=== PATIENT | female | born 1985 | race Two or more races ===

== ENCOUNTER → 2022-01-14 | Day surgery (SDC) | payer OTHER ==
[~2022-01-14] VITALS: Ht 157.5 cm; Wt 51.7 kg
[~2022-01-14] MED LIST: D3 + K2 DOTS 11 EACH PO; IRON325 MG PO; SYNTHROID50 MCG PO; TAMOXIFEN CITRA20 MG PO
== END | disposition home or self-care (01) ==
LOC: ADM 01-07 11:00 → CIR.AMB 07:00
PROVIDERS: ATTEND Colon & Rectal Surgery
DX: K64.2 Third degree hemorrhoids (principal); Z20.822 Contact with and (suspected) exposure to COVID-19; K21.9 Gastro-esophageal reflux disease without esophagitis; Z85.3 Personal history of malignant neoplasm of breast

== ENCOUNTER 2024-03-31 09:15 | Inpatient (IN) | payer OTHER ==
[~2024-03-31] VITALS: Ht 157.5 cm; Wt 56.2 kg
[2024-04-06] MEDS ORDERED: CEFOXITIN SODIUM 2,000 MG VIAL IV ONE (17:43)
[2024-04-06] MEDS ORDERED: ONDANSETRON HCL 2 MG/ML VIAL IV PRN (19:45)
[2024-04-06] MEDS ORDERED: MORPHINE SULFATE 4 MG/ML CARTRIDGE IV PRN (19:45)
[2024-04-06] MEDS ORDERED: RINGERS SOLUTION,LACTATED 1,000 ML IV SCH (19:45)
[2024-04-06] MEDS ORDERED: CEFOXITIN SODIUM 2,000 MG VIAL IV SCH (19:45)
[2024-04-06] MEDS ORDERED: DOCUSATE SODIUM 100MG CAP PO SCH (21:00)
[2024-04-06] MEDS ORDERED: FAMOTIDINE/PF 20 MG/2 ML VIAL IV SCH (21:00)
[2024-04-06] MEDS ORDERED: ONDANSETRON HCL 2 MG/ML VIAL ONE (21:58)
[2024-04-07] MEDS ORDERED: CEFOXITIN SODIUM 2,000 MG VIAL IV ONE (00:23)
[2024-04-07] MEDS ORDERED: KETOROLAC TROMETHAMINE 30 MG VIAL ONE (00:30)
[2024-04-07] MEDS ORDERED: CEFOXITIN SODIUM 2,000 MG VIAL IV SCH (01:00)
[2024-04-07] MEDS ORDERED: KETOROLAC TROMETHAMINE 30 MG VIAL IV SCH (01:00)
[2024-04-07 01:12] LABS: HEMATOCRIT 35.4 % (36.0-45.00); HEMOGLOBIN 11.7 g/dL (12.0-15.00); MEAN CELL VOLUME 84.8 fL (80.00-100.00); MEAN CORPUSCULAR HEMOGLOBIN 28.1 pg (27.00-32.0); MEAN CORPUSCULAR HGB CONC 33.1 g/dl (32.0-36.0); PLATELET COUNT 247 K/uL (150-450); RED BLOOD COUNT 4.18 M/uL (4.00-6.00); RED CELL DISTRIBUTION WIDTH 14.1 % (11.5-14.5)
[2024-04-07 01:14] LABS: CALCIUM 8.8 mg/dL (8.5-10.1); CREATININE SERUM 0.62 mg/dL (0.55-1.02); GFR 106.61; POTASSIUM 4.09 mEq/L (3.5-5.1)
[2024-04-07 06:57] LABS: CALCIUM 8.7 mg/dL (8.5-10.1); CREATININE SERUM 0.62 mg/dL (0.55-1.02); GFR 106.61; POTASSIUM 4.17 mEq/L (3.5-5.1)
[2024-04-07] MEDS ORDERED: OxyCODONE HCL/APAP UD (PERCOCET) PO PRN (08:30)
[2024-04-07] MEDS ORDERED: ENOXAPARIN SODIUM 40 MG/0.4 ML SYRINGE SUBCUTANEO SCH (09:00)
[2024-04-07] MEDS ORDERED: SIMETHICONE 125 MG CAPSULE PO SCH (09:00)
== END 2024-04-08 11:21 | disposition home or self-care (01) | DRG 743 ==
LOC: O/R 04-06 06:16 → OB/GYN 04-06 09:15 → SURG 04-06 20:15
PROVIDERS: Obstetrics & Gynecology; ADMIT Obstetrics & Gynecology Gynecologic Oncology; ATTEND Obstetrics & Gynecology Gynecologic Oncology
PROC: 0UT70ZZ Resection of Bilateral Fallopian Tubes, Open Approach (ICD-10-PCS; 2024-04-06)
PROC: 0UT20ZZ Resection of Bilateral Ovaries, Open Approach (ICD-10-PCS; 2024-04-06)
PROC: 0DBU0ZZ Excision of Omentum, Open Approach (ICD-10-PCS; 2024-04-06)
PROC: 3E1M38Z Irrigation of Peritoneal Cavity using Irrigating Substance, Percutaneous Approach (ICD-10-PCS; 2024-04-06)
PROC: 0UT90ZZ Resection of Uterus, Open Approach (ICD-10-PCS; principal; 2024-04-06 18:15)
DX: D25.2 Subserosal leiomyoma of uterus (principal); D25.0 Submucous leiomyoma of uterus; N72 Inflammatory disease of cervix uteri; Z20.822 Contact with and (suspected) exposure to COVID-19